=== PATIENT | female | born 1960 | race American Indian/Alaskan Native ===

== ENCOUNTER 2017-12-12 20:16 | Emergency (ER) | payer OTHER ==
[2017-12-12 20:35] VITALS: RESP 20
--- NOTE | 2017-12-12 20:59 | C.PDOC ---
History Of Present Illness 57 y/o female, with PMHx of HTN, presents to ED for high blood pressure and lightheadedness. Pt states her mediations was recently changed by her PMD from Losartan to Amlodipine. Pt states the "new medications are not working." Pt also complains of cough and nasal congestion. Denies fever, or other complaints. Time Seen by Provider: 12/12/17 20:53 Chief Complaint (Nursing): High Blood Pressure History Per: Patient History/Exam Limitations: no limitations Onset/Duration Of Symptoms: Days Current Symptoms Are (Timing): Still Present Associated Symptoms: denies: Chest Pain, Dyspnea, Dizziness, Blurred Vision, Focal Weakness, Headache Severity: None Pain Scale Rating Of: 0 Recent travel outside of the [place]: No Additional History Per: Patient Past Medical History Reviewed: Historical Data, Nursing Documentation, Vital Signs Vital Signs: Last Vital Signs Temp 97.7 F 12/12/17 23:12 Pulse 62 12/12/17 23:12 Resp 20 12/12/17 23:12 BP 144/81 12/12/17 23:12 Pulse Ox 100 12/12/17 23:12 - Medical History PMH: Anxiety, HTN Family History: States: Unknown Family Hx - Social History Hx Tobacco Use: No Hx Alcohol Use: Yes (glass of wine) Hx Substance Use: No - Immunization History Hx Tetanus Toxoid Vaccination: No Hx Influenza Vaccination: No Hx Pneumococcal Vaccination: No Review Of Systems Except As Marked, All Systems Reviewed And Found Negative. Constitutional: Negative for: Fever, Chills ENT: Positive for: Nose Congestion. Negative for: Ear Pain, Nose Discharge, Throat Pain Cardiovascular: Positive for: Light Headedness. Negative for: Chest Pain, Palpitations, Edema Respiratory: Positive for: Cough. Negative for: Shortness of Breath Gastrointestinal: Negative for: Nausea, Vomiting, Abdominal Pain Neurological: Negative for: Headache, Dizziness Physical Exam - Physical Exam Appears: Non-toxic, No Acute Distress, Other (anxious) Skin: Normal Color, Warm, Dry Head: Atraumatic, Normacephalic Eye(s): bilateral: Normal Inspection Oral Mucosa: Moist Chest: Symmetrical Cardiovascular: Rhythm Regular, No Murmur Respiratory: Normal Breath Sounds, No Rales, No Rhonchi, No Wheezing Gastrointestinal/Abdominal: Soft, No Tenderness Extremity: Normal ROM, No Pedal Edema Neurological/Psych: Oriented x3, Normal Speech ED Course And Treatment - Laboratory Results Result Diagrams: 12/12/17 21:24 12/12/17 21:24 O2 Sat by Pulse Oximetry: 99 (RA) Pulse Ox Interpretation: Normal Medical Decision Making Medical Decision Making: Blood work, UA, EKG, CXR, Influenza AB ordered and reviewed. ekg sinus maria 58 incomplete rbbb no previous no e/o of hypertensive emergency. labs unremarkable. cxr shows possibl emild retrocardiac infiltrat vs atelectasis. curb 65 neg. will also dose tamiflu.p tstate she feels well for dc and agrees to dc home. updated dr sims who agrees to see pt with close outpt f/u . updated pt. return precautions advised. pt also reports allergy to pcn (throat clsoing). states she will go to pharmacy and fill Levaquin. Disposition - Disposition Disposition: HOME/ ROUTINE Disposition Time: 12:00 Condition: STABLE Additional Instructions: follo wup with dr peterson, return to er with worsening symptoms or concerns. Prescriptions: levoFLOXacin [Levaquin] 750 mg PO DAILY #10 tab Oseltamivir Phosphate [Tamiflu] 75 mg PO BID #10 capsule Instructions: High Blood Pressure (DC), Pneumonia, Adult (DC) Forms: [employer] (Mauritanian) - Clinical Impression Clinical Impression: Hypertension - Scribe Statement The provider has reviewed the documentation as recorded by the Tobiibvickey Sanchez All medical record entries made by the Scribe were at my direction and personally dictated by me. I have reviewed the chart and agree that the record accurately reflects my personal performance of the history, physical exam, medical decision making, and the department course for this patient. I have also personally directed, reviewed, and agree with the discharge instructions and disposition.
--- NOTE | 2017-12-12 21:22 | RAD ---
HISTORY: cough COMPARISON: None available. TECHNIQUE: Chest PA and lateral FINDINGS: LUNGS: Biapical pleural thickening. Mild retrocardiac atelectasis/infiltrate. Please note that chest x-ray has limited sensitivity for the detection of pulmonary masses. PLEURA: No significant pleural effusion identified. No definite pneumothorax . CARDIOVASCULAR: Heart size appears within normal limits. OSSEOUS STRUCTURES: Degenerative changes. VISUALIZED UPPER ABDOMEN: Unremarkable. OTHER FINDINGS: None. IMPRESSION: Biapical pleural thickening. Mild retrocardiac atelectasis/ infiltrate.
[2017-12-12] MEDS ORDERED: Azithromycin 500 MG in Sodium Chloride 0.9% 250 ML IVPB STA (21:24)
[2017-12-12 21:27] LABS: EOS # 0.1 K/uL (0.0-0.7); EOS % 2.7 % (0.0-4.0); HEMOGLOBIN 13.1 g/dL (11.0-16.0); LYMPH # 1.9 K/uL (1.0-4.3); LYMPH % 42.1 % (20.0-40.0); MEAN CELL VOLUME 94.8 fL (81.0-99.0); MEAN CORPUSCULAR HEMOGLOBIN 32.7 pg (27.0-31.0); MEAN CORPUSCULAR HGB CONC 34.5 g/dL (33.0-37.0); MEAN PLATELET VOLUME 8.4 fL (7.2-11.7); MONO # 0.3 K/uL (0.0-0.8); MONO % 7.7 % (0.0-10.0); NEUT # 2.1 K/uL (1.8-7.0); NEUT % 46.5 % (50.0-75.0); RED CELL DISTRIBUTION WIDTH 13.4 % (11.5-14.5); WHITE BLOOD COUNT 4.6 K/uL (4.8-10.8)
[2017-12-12 21:34] LABS: INR 1.1; PROTHROMBIN TIME 12.4 SECONDS (9.7-12.2)
[2017-12-12 21:44] LABS: SQUAMOUS EPITHIAL 1 /hpf (0-5); URINE BACTERIA RARE (<OCC); URINE BILIRUBIN NEGATIVE (NEGATIVE); URINE BLOOD NEGATIVE (NEGATIVE); URINE CLARITY Clear (Clear); URINE COLOR Colorless (YELLOW); URINE GLUCOSE (UA) NORMAL (Normal); URINE LEUKOCYTE ESTERASE 3+ Leu/uL (Negative); URINE PROTEIN NEGATIVE (NEGATIVE); URINE UROBILINOGEN NORMAL mg/dL (0.2-1.0)
[2017-12-12 21:48] LABS: ALB/GLOB RATIO 1.4 (1.0-2.1); ALBUMIN 4.3 g/dL (3.5-5.0); ALT/SGPT 35 U/L (9-52); AST/SGOT 36 U/L (14-36); BLOOD UREA NITROGEN 17 mg/dL (7-17); CALCIUM 9.6 mg/dl (8.6-10.4); GFR AFRICAN-AMERICAN > 60; GFR NON-AFRICAN AMERICAN > 60
[2017-12-12] MEDS ORDERED: cefTRIAXone IV 1 gm in Dextros 1 GM in Dextrose 5% In Water 50 ML IVPB ONE (22:07)
[2017-12-12] MEDS ORDERED: cefTRIAXone IV 1 gm in Dextros 50 ML IVPB ONE (22:07)
[2017-12-12 23:14] VITALS: BP 144/81; PULSE 62; TEMP 97.7
[2017-12-13 00:07] VITALS: O2SAT 99
[2017-12-13] MEDS ORDERED: cefTRIAXone 2 GM in Sodium Chloride 0.9% 100 ML IVPB SCH (10:00)
--- NOTE | 2017-12-14 20:21 | CARD ---
APPROVED REPORT EKG Measurement Heart [id number] <Conclusion> Sinus bradycardia Possible Left atrial enlargement Incomplete right bundle branch block Borderline ECG
== END 2017-12-12 23:13 | disposition home or self-care (01) ==
LOC: C.ER 20:16
DX: I10 Essential (primary) hypertension (principal)

== ENCOUNTER 2018-01-06 09:46 | Observation (INO) | payer OTHER ==
--- NOTE | 2018-01-06 10:47 | C.PDOC ---
History Of Present Illness 57yo female, with history of hypertension states she has been on Lisinopril however her blood pressure remained elevated and was placed on Amliodopine but it has not been helping with her elevated blood pressure. Patient states she feels unwell, and has been waking up at night due to elevated blood pressure and hot/cold flashes. She also has a secondary complaints of vaginal spotting for the past 4 years. She went to see her PCP Dr. Prescott in his office today however her blood pressure was elevated in his office, after which he told her to come to the ER for further evaluation. Currently in the ER, patient's blood pressure is in 140's systolic. She has no other medical complaints. Time Seen by Provider: 01/06/18 10:16 Chief Complaint (Nursing): Female Genitourinary History Per: Patient History/Exam Limitations: no limitations Onset/Duration Of Symptoms: Persistent Current Symptoms Are (Timing): Still Present Associated Symptoms: Other (hot/cold flashes) Exacerbating Factor(s): Pos: Recent Change In Medication Past Medical History Reviewed: Historical Data, Nursing Documentation, Vital Signs Vital Signs: Last Vital Signs Temp 98 F 01/06/18 13:12 Pulse 76 01/06/18 13:12 Resp 18 01/06/18 13:12 BP 144/82 01/06/18 13:12 Pulse Ox 96 01/06/18 13:12 - Medical History PMH: Anxiety, HTN Surgical History: No Surg Hx Family History: States: Unknown Family Hx - Social History Hx Tobacco Use: No Hx Alcohol Use: Yes (glass of wine) Hx Substance Use: No - Immunization History Hx Tetanus Toxoid Vaccination: No Hx Influenza Vaccination: No Hx Pneumococcal Vaccination: No Review Of Systems Constitutional: Negative for: Fever, Chills Cardiovascular: Positive for: Other (elevated blood pressure) Genitourinary: Positive for: Vaginal Bleeding (vaginal spotting x 4 years) Physical Exam - Physical Exam Appears: Non-toxic, No Acute Distress Skin: Normal Color, Warm, Dry Head: Atraumatic, Normacephalic Eye(s): bilateral: Normal Inspection Nose: Normal Oral Mucosa: Moist Neck: Normal ROM, Supple Chest: Symmetrical Cardiovascular: Rhythm Regular, No Murmur Respiratory: Normal Breath Sounds, No Wheezing Gastrointestinal/Abdominal: Normal Exam, Soft, No Tenderness Extremity: Normal ROM Neurological/Psych: Oriented x3, Normal Motor, Normal Sensation ED Course And Treatment - Laboratory Results Result Diagrams: 01/06/18 11:14 01/06/18 11:14 Lab Interpretation: Normal ECG: Interpreted By Me ECG Rhythm: Sinus Rhythm, Nonspecific Changes ECG Interpretation: No Acute Changes Rate From EC O2 Sat by Pulse Oximetry: 100 (RA) Pulse Ox Interpretation: Normal - Radiology CXR: Interpreted by Me CXR Interpretation: Yes: No Acute Disease Progress Note: Patient has gail experiencing hypertension for months not controlled by meds. Patient evaluated by Dr Prescott in office and B/P elevated ans sent to ED for further evaluation. Treated with xanax Reassessment Condition: Improved - Physician Consult Information Physician Contacted: Champ Prescott Outcome Of Conversation: admit Medical Decision Making Medical Decision Making: Plan: -- CMP -- CBC -- Troponin I -- CXR -- Urinalysis -- Urine culture Time: 1048 CXR FINDINGS: LUNGS: No active pulmonary disease. PLEURA: No significant pleural effusion identified. No pneumothorax apparent. CARDIOVASCULAR: Normal. OSSEOUS STRUCTURES: Unchanged. VISUALIZED UPPER ABDOMEN: Normal. OTHER FINDINGS: None. IMPRESSION: No active disease. Disposition Doctor Will See Patient In The: Hospital - Disposition Disposition: HOSPITALIZED Disposition Time: 13:15 Condition: STABLE Instructions: High Blood Pressure in Adults Forms: [facility] ([place]) - POA Present On Arrival: None - Clinical Impression Clinical Impression: Hypertension, Headache - PA / MIDLEVEL PROVIDER / Resident Statement MD/DO has reviewed & agrees with the documentation as recorded. - Scribe Statement The provider has reviewed the documentation as recorded by the Scribe (Lissett Umanzor) Provider Attestation: All medical record entries made by the Scribe were at my direction and personally dictated by me. I have reviewed the chart and agree that the record accurately reflects my personal performance of the history, physical exam, medical decision making, and the department course for this patient. I have also personally directed, reviewed, and agree with the discharge instructions and disposition. Decision To Admit - Pt Status Changed To: Hospital Disposition Of: Observation - . Bed Request Type: Regular Admitting Physician: Champ Prescott Patient Diagnosis: Hypertension, Headache
--- NOTE | 2018-01-06 10:50 | RAD ---
HISTORY: SOB COMPARISON: Chest radiograph dated 12/12/2017. TECHNIQUE: Chest PA and lateral FINDINGS: LUNGS: No active pulmonary disease. PLEURA: No significant pleural effusion identified. No pneumothorax apparent. CARDIOVASCULAR: Normal. OSSEOUS STRUCTURES: Unchanged. VISUALIZED UPPER ABDOMEN: Normal. OTHER FINDINGS: None. IMPRESSION: No active disease.
[2018-01-06 11:22] LABS: BASO # 0.1 K/uL (0.0-0.2); BASO % 1.5 % (0.0-2.0); EOS # 0.1 K/uL (0.0-0.7); EOS % 2.1 % (0.0-4.0); HEMOGLOBIN 12.9 g/dL (11.0-16.0); LYMPH # 1.4 K/uL (1.0-4.3); LYMPH % 36.8 % (20.0-40.0); MEAN CELL VOLUME 94.7 fL (81.0-99.0); MEAN CORPUSCULAR HEMOGLOBIN 32.4 pg (27.0-31.0); MEAN CORPUSCULAR HGB CONC 34.2 g/dL (33.0-37.0); MEAN PLATELET VOLUME 8.4 fL (7.2-11.7); MONO # 0.3 K/uL (0.0-0.8); MONO % 7.6 % (0.0-10.0); RBC 3.98 Mil/uL (3.80-5.20); RED CELL DISTRIBUTION WIDTH 13.8 % (11.5-14.5); WHITE BLOOD COUNT 3.9 K/uL (4.8-10.8)
[2018-01-06 11:24] LABS: URINE BILIRUBIN NEGATIVE (NEGATIVE); URINE BLOOD NEGATIVE (NEGATIVE); URINE CLARITY Clear (Clear); URINE COLOR Colorless (YELLOW); URINE GLUCOSE (UA) NORMAL (Normal); URINE LEUKOCYTE ESTERASE NEG Leu/uL (Negative); URINE PROTEIN NEGATIVE (NEGATIVE); URINE UROBILINOGEN NORMAL mg/dL (0.2-1.0)
[2018-01-06 11:53] LABS: ALB/GLOB RATIO 1.2 (1.0-2.1); ALBUMIN 4.2 g/dL (3.5-5.0); ALT/SGPT 38 U/L (9-52); AST/SGOT 54 U/L (14-36); BLOOD UREA NITROGEN 9 mg/dL (7-17); CALCIUM 9.8 mg/dl (8.6-10.4); GFR AFRICAN-AMERICAN > 60; GFR NON-AFRICAN AMERICAN > 60
[2018-01-06 19:13] VITALS: RESP 20
--- NOTE | 2018-01-06 22:49 | CP.PCM.HP ---
History of Present Illness - History of Present Illness History of Present Illness: Chief complaint: Uncontrolled hypertension, sudden shaking, palpitation. History present illness: 57-year-old female with history of hypertension,came to the emergency room with symptoms of shaking, palpitation, sweating, headache, nausea aand not feeling well. The patient is currently having frequent episodes of palpitation. She is feeling like near passing out, and also shaking. She gets sudden onset of chest discomfort especially after not eating and time. If she does not eat in time, she started noticing worsening symptoms of heat sensation in the body, numbness in the hands, and also started having some chest tightness associated with the symptoms about palpitation. No chest pain. Denies any headache, but complaining of some dizziness. Patient has symptoms of nausea, but no vomiting. Patient is having these episodes at least a 3 weeks. She also started having the similar symptoms in the past doing the same time while her 3 years ago. She gets the symptoms and at the same time as her blood pressure goes up to 200. Today in my office she was being examined, and she started noticing chest tightness, palpitation, and associated with a very high Hypertension, because of the symptoms of impending stroke like symptoms I advised the patient to go to the emergency room. In the emergency room patient was evaluated, blood pressure improved, after resting she was also feeling slightly better. Past medical history: Hypertension, anxiety, grievance and depression Allergy: No known drug allergy Personal history: Patient is a lifelong nonsmoker, nonalcoholic Patient drinks socially, she drinks coffee daily family history noncontributory Review of systems: Patient is having a headache currently, nausea, no chest pain, denies any chest pain at this time. But complaining of heaviness in the head and neck. She's also feeling somewhat depressed and at times she has a significant feelings of depression with anxiety. Not able to sleep well. Patient's who year ago almost one year anniversary is in 2 weeks. On examination: HEENT PERRLA, neck supple No thyromegaly was noted and no cervical adenopathy noted Chest bilateral good air entry, no wheezing or rales noted CVS regular heart sound, no murmur Abdomen soft and no organomegaly Extremities no pedal edema, no leg swelling, pedal pulses are good. 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 Symptoms are improving with medication, I advised her to continue the antihypertensives. Most likely patient has anxiety episodes. Hypertensive emergency, but controlled well now. Will monitor 24 hours. start the patient on anxiolytics, will follow the patient. Present on Admission - Present on Admission Any Indicators Present on Admission: No History of DVT/PE: No History of Uncontrolled Diabetes: No Urinary Catheter: No Decubitus Ulcer Present: No Past Patient History - Past Medical History & Family History Past Medical History?: No - Past Social History Smoking Status: Never Smoked - CARDIAC Hx Hypertension: Yes - MUSCULOSKELETAL/RHEUMATOLOGICAL Hx Falls: No - PSYCHIATRIC Hx Anxiety: Yes Hx Substance Use: No - SURGICAL HISTORY Hx Surgeries: No - ANESTHESIA Hx Anesthesia: No Meds Allergies/Adverse Reactions: Allergies Allergy/AdvReac Type Severity Reaction Status Date / Time banana Allergy Verified 12/12/17 20:28 lactose Allergy Verified 12/12/17 20:28 Penicillins Allergy Verified 12/12/17 22:13 shrimp Allergy Verified 12/12/17 20:28 Results - Vital Signs Recent Vital Signs: Last Vital Signs Temp 98.1 F 01/06/18 19:11 Pulse 63 01/06/18 19:11 Resp 20 01/06/18 19:11 BP 121/72 01/06/18 19:11 Pulse Ox 98 01/06/18 19:11 - Labs Result Diagrams: 01/06/18 11:14 01/06/18 11:14 Labs: Laboratory Results - last 24 hr 01/06/18 01/06/18 01/06/18 11:14 11:14 11:14 WBC 3.9 L RBC 3.98 Hgb 12.9 Hct 37.7 MCV 94.7 MCH 32.4 H MCHC 34.2 RDW 13.8 Plt Count 219 MPV 8.4 Neut % (Auto) 52.0 Lymph % (Auto) 36.8 [place] % (Auto) 7.6 Eos % (Auto) 2.1 Baso % (Auto) 1.5 Neut # (Auto) 2.0 Lymph # (Auto) 1.4 [place] # (Auto) 0.3 Eos # (Auto) 0.1 Baso # (Auto) 0.1 Sodium 142 Potassium 3.7 Chloride 102 Carbon Dioxide 26 Anion Gap 17 BUN 9 Creatinine 0.8 Est GFR ( Amer) > 60 Est GFR (Non-Af Amer) > 60 Random Glucose 84 Calcium 9.8 Total Bilirubin 0.7 AST 54 H D ALT 38 Alkaline Phosphatase 59 Troponin I < 0.0120 Total Protein 7.7 Albumin 4.2 Globulin 3.5 Albumin/Globulin Ratio 1.2 Urine Color Colorless Urine Clarity Clear Urine pH 7.0 Ur Specific [place] 1.002 L Urine Protein Negative Urine Glucose (UA) Normal Urine Ketones Negative Urine Blood Negative Urine Nitrate Negative Urine Bilirubin Negative Urine Urobilinogen Normal Ur Leukocyte Esterase Neg Urine WBC (Auto) < 1
[2018-01-07 07:40] LABS: HEMOGLOBIN 13.4 g/dL (11.0-16.0); MEAN CELL VOLUME 95.8 fL (81.0-99.0); MEAN CORPUSCULAR HEMOGLOBIN 32.6 pg (27.0-31.0); MEAN PLATELET VOLUME 8.9 fL (7.2-11.7); RBC 4.12 Mil/uL (3.80-5.20); RED CELL DISTRIBUTION WIDTH 13.7 % (11.5-14.5); WHITE BLOOD COUNT 3.3 K/uL (4.8-10.8)
[2018-01-07 08:15] VITALS: BP 126/82; PULSE 78; TEMP 98.1; O2SAT 98
--- NOTE | 2018-01-07 08:51 | CP.PCM.DIS ---
Provider - Provider Date of Admission: 01/06/18 17:00 Attending physician: Champ Prescott MD Time Spent in preparation of Discharge (in minutes): 55 Hospital Course - Lab Results Lab Results: Most Recent Lab Values WBC 3.3 K/uL (4.8-10.8) L 01/07/18 07:26 RBC 4.12 Mil/uL (3.80-5.20) 01/07/18 07:26 Hgb 13.4 g/dL (11.0-16.0) 01/07/18 07:26 Hct 39.5 % (34.0-47.0) 01/07/18 07: MCV 95.8 fL (81.0-99.0) 01/07/18 07: MCH 32.6 pg (27.0-31.0) H 01/07/18 07: MCHC 34.0 g/dL (33.0-37.0) 01/07/18 07: RDW 13.7 % (11.5-14.5) 01/07/18 07:26 Plt Count 233 K/uL (130-400) 01/07/18 07:26 MPV 8.9 fL (7.2-11.7) 01/07/18 07:26 Neut % (Auto) 52.0 % (50.0-75.0) 01/06/18 11:14 Lymph % (Auto) 36.8 % (20.0-40.0) 01/06/18 11:14 [place] % (Auto) 7.6 % (0.0-10.0) 01/06/18 11:14 Eos % (Auto) 2.1 % (0.0-4.0) 01/06/18 11:14 Baso % (Auto) 1.5 % (0.0-2.0) 01/06/18 11:14 Neut # (Auto) 2.0 K/uL (1.8-7.0) 01/06/18 11:14 Lymph # (Auto) 1.4 K/uL (1.0-4.3) 01/06/18 11:14 [place] # (Auto) 0.3 K/uL (0.0-0.8) 01/06/18 11:14 Eos # (Auto) 0.1 K/uL (0.0-0.7) 01/06/18 11:14 Baso # (Auto) 0.1 K/uL (0.0-0.2) 01/06/18 11:14 Sodium 142 mmol/L (132-148) 01/06/18 11:14 Potassium 3.7 mmol/L (3.6-5.2) 01/06/18 11:14 Chloride 102 mmol/L (98-107) 01/06/18 11:14 Carbon Dioxide 26 mmol/L (22-30) 01/06/18 11:14 Anion Gap 17 (10-20) 01/06/18 11:14 BUN 9 mg/dL (7-17) 01/06/18 11:14 Creatinine 0.8 mg/dL (0.7-1.2) 01/06/18 11:14 Est GFR ( Amer) > 60 01/06/18 11:14 Est GFR (Non-Af Amer) > 60 01/06/18 11:14 Random Glucose 84 mg/dL (65-105) 01/06/18 11:14 Calcium 9.8 mg/dl (8.6-10.4) 01/06/18 11:14 Total Bilirubin 0.7 mg/dL (0.2-1.3) 01/06/18 11:14 AST 54 U/L (14-36) H D 01/06/18 11:14 ALT 38 U/L (9-52) 01/06/18 11:14 Alkaline Phosphatase 59 U/L (38-126) 01/06/18 11:14 Troponin I < 0.0120 ng/mL (0.00-0.120) 01/06/18 11:14 Total Protein 7.7 g/dL (6.3-8.3) 01/06/18 11:14 Albumin 4.2 g/dL (3.5-5.0) 01/06/18 11:14 Globulin 3.5 gm/dL (2.2-3.9) 01/06/18 11:14 Albumin/Globulin Ratio 1.2 (1.0-2.1) 01/06/18 11:14 Urine Color Colorless (YELLOW) 01/06/18 11:14 Urine Clarity Clear (Clear) 01/06/18 11:14 Urine pH 7.0 (5.0-8.0) 01/06/18 11:14 Ur Specific [place] 1.002 (1.003-1.030) L 01/06/18 11:14 Urine Protein Negative mg/dL (NEGATIVE) 01/06/18 11:14 Urine Glucose (UA) Normal mg/dL (Normal) 01/06/18 11:14 Urine Ketones Negative mg/dL (NEGATIVE) 01/06/18 11:14 Urine Blood Negative (NEGATIVE) 01/06/18 11:14 Urine Nitrate Negative (NEGATIVE) 01/06/18 11:14 Urine Bilirubin Negative (NEGATIVE) 01/06/18 11:14 Urine Urobilinogen Normal mg/dL (0.2-1.0) 01/06/18 11:14 Ur Leukocyte Esterase Neg [place]/uL (Negative) 01/06/18 11:14 Urine WBC (Auto) < 1 /hpf (0-5) 01/06/18 11:14 - Hospital Course Hospital Course: Upon Admission: Chief complaint: Uncontrolled hypertension, sudden shaking, palpitation. History present illness: 57-year-old female with history of hypertension,came to the emergency room with symptoms of shaking, palpitation, sweating, headache, nausea aand not feeling well. The patient is currently having frequent episodes of palpitation. She is feeling like near passing out, and also shaking. She gets sudden onset of chest discomfort especially after not eating and time. If she does not eat in time, she started noticing worsening symptoms of heat sensation in the body, numbness in the hands, and also started having some chest tightness associated with the symptoms about palpitation. No chest pain. Denies any headache, but complaining of some dizziness. Patient has symptoms of nausea, but no vomiting. Patient is having these episodes at least a 3 weeks. She also started having the similar symptoms in the past doing the same time while her 3 years ago. She gets the symptoms and at the same time as her blood pressure goes up to 200. Today in my office she was being examined, and she started noticing chest tightness, palpitation, and associated with a very high Hypertension, because of the symptoms of impending stroke like symptoms I advised the patient to go to the emergency room. In the emergency room patient was evaluated, blood pressure improved, after resting she was also feeling slightly better. Past medical history: Hypertension, anxiety, grievance and depression Allergy: No known drug allergy Personal history: Patient is a lifelong nonsmoker, nonalcoholic Patient drinks socially, she drinks coffee daily family history noncontributory Review of systems: Patient is having a headache currently, nausea, no chest pain, denies any chest pain at this time. But complaining of heaviness in the head and neck. She's also feeling somewhat depressed and at times she has a significant feelings of depression with anxiety. Not able to sleep well. Patient's who year ago almost one year anniversary is in 2 weeks. Throughout Hospital Course: Patient was admitted for hypertension associated with n/v and headache. Patient was observed overnight. EKG - WNL. Patient reports she feels well this morning. Patient will be discharged with Cozaar and Xanax. She is to follow up with Dr. Prescott in 1-2 weeks. Discharge Exam - Head Exam Head Exam: ATRAUMATIC, NORMAL INSPECTION, NORMOCEPHALIC - Eye Exam Eye Exam: EOMI, Normal appearance, PERRL Pupil Exam: NORMAL ACCOMODATION - Neck Exam Neck exam: Normal Inspection - Respiratory Exam Respiratory Exam: NORMAL BREATHING PATTERN - Cardiovascular Exam Cardiovascular Exam: REGULAR RHYTHM - GI/Abdominal Exam GI & Abdominal Exam: Normal Bowel Sounds, Soft. absent: Distended, Tenderness - Rectal Exam Rectal Exam: Deferred - Extremities Exam Extremities exam: normal inspection, pedal pulses present - Neurological Exam Neurological exam: Alert, CN II-XII Intact, Oriented x3 - Psychiatric Exam Psychiatric exam: Normal Affect, Normal Mood - Skin Skin Exam: Dry, Intact, Normal Color, Warm Discharge Plan - Discharge Medications Prescriptions: Losartan [Cozaar] 25 mg PO DAILY #30 tab - Follow Up Plan Condition: STABLE Disposition: HOME/ ROUTINE Instructions: High Blood Pressure in Adults, Hypertension (DC), Hypertension ( GEN) Additional Instructions: You are to continue taking Cozaar 25mg by mouth daily. You can also take Xanax 0.25mg by mouth in the am and at night as needed - Dr. Prescott will send this medication to your pharmacy. Please see Dr. Prescott in 1-2 weeks.
[2018-01-07 09:47] LABS: CK-MB 0.41 ng/mL (0.0-3.38)
[2018-01-07 09:52] LABS: ALB/GLOB RATIO 1.2 (1.0-2.1); ALBUMIN 4.3 g/dL (3.5-5.0); AST/SGOT 57 U/L (14-36); BLOOD UREA NITROGEN 12 mg/dL (7-17); CALCIUM 10.1 mg/dl (8.6-10.4); GFR AFRICAN-AMERICAN > 60; GFR NON-AFRICAN AMERICAN > 60
[2018-01-07] MEDS ORDERED: Pneumococcal 23-Valent Vaccine IM ONE (10:00)
[2018-01-07 10:22] LABS: ALT/SGPT 30 U/L (9-52)
--- NOTE | 2018-01-08 08:01 | CARD ---
APPROVED REPORT EKG Measurement Heart [id number] <Conclusion> Normal sinus rhythm Nonspecific T wave abnormality Abnormal ECG
== END 2018-01-07 12:50 | disposition home or self-care (01) ==
LOC: C.ER 09:46 → C.3T 17:00
PROVIDERS: ADMIT Internal Medicine; ATTEND Internal Medicine
DX: I16.1 Hypertensive emergency (principal); I10 Essential (primary) hypertension; F41.9 Anxiety disorder, unspecified
CPT/HCPCS: 36415; 71046; 80053; 81001; 82948; 84484; 85025; 85027; 87086; 99284; G0378

== ENCOUNTER 2018-05-04 14:54 | Emergency (ER) | payer OTHER ==
--- NOTE | 2018-05-04 16:13 | C.PDOC ---
History Of Present Illness 57 y/o female sent to the ED by PMD for evaluation of anxiety and elevated blood pressure. Patient states she received news about a in the family today, and started to feel stressed out. She checked her blood pressure at home and found it to be 180/100, so she took 2 doses of her morning medication. Otherwise patient offers no physical complaints. She denies any chest pain, SOB , headache, dizziness, double or blurry vision. On examination patient complains she is hungry, requesting food. Time Seen by Provider: 05/04/18 15:23 Chief Complaint (Nursing): Anxiety History Per: Patient History/Exam Limitations: no limitations Onset/Duration Of Symptoms: Hrs Current Symptoms Are (Timing): Better Suicide/Self Injury Attempted (Context): None Modifying Factor(s): None Past Medical History Reviewed: Historical Data, Nursing Documentation, Vital Signs Vital Signs: Last Vital Signs Temp 98.7 F 05/04/18 16:53 Pulse 64 05/04/18 16:53 Resp 20 05/04/18 16:53 BP 148/90 05/04/18 16:53 Pulse Ox 100 05/04/18 16:53 - Medical History PMH: Anxiety, HTN Surgical History: No Surg Hx Family History: States: Unknown Family Hx - Social History Hx Tobacco Use: No Hx Alcohol Use: Yes (glass of wine) Hx Substance Use: No - Immunization History Hx Tetanus Toxoid Vaccination: No Hx Influenza Vaccination: No Hx Pneumococcal Vaccination: No Review Of Systems Except As Marked, All Systems Reviewed And Found Negative. Eyes: Negative for: Vision Change Cardiovascular: Negative for: Chest Pain Respiratory: Negative for: Shortness of Breath Gastrointestinal: Negative for: Nausea, Vomiting Neurological: Negative for: Weakness, Change in Speech, Confusion, Headache, Dizziness Psych: Positive for: Anxiety, Other (Emotional stress) Physical Exam - Physical Exam Appears: Well, Non-toxic, No Acute Distress Skin: Warm, Dry, No Rash Head: Atraumatic, Normacephalic Eye(s): bilateral: Normal Inspection Oral Mucosa: Moist Neck: Normal ROM, Supple Chest: Symmetrical Cardiovascular: Rhythm Regular, No Murmur Respiratory: Normal Breath Sounds, No Rales, No Rhonchi, No Wheezing Gastrointestinal/Abdominal: Soft, No Tenderness Extremity: Bilateral: Atraumatic, Normal Color And Temperature, Normal ROM Neurological/Psych: Oriented x3, Normal Speech, Normal Motor Gait: Steady ED Course And Treatment O2 Sat by Pulse Oximetry: 99 (RA) Pulse Ox Interpretation: Normal Disposition - Disposition Referrals: Champ Prescott MD [Staff Provider] - Disposition: HOME/ ROUTINE Disposition Time: 16:27 Condition: GOOD Additional Instructions: Follow up with the medical doctor within 1-2 days, Return if worsened. Instructions: Anxiety, Adult (DC) Forms: [employer] (Citizen Of [place]) - Clinical Impression Clinical Impression: Anxiety, Grief - PA / BILINGUAL SALES REPRESENTATIVE / Resident Statement MD/DO has reviewed & agrees with the documentation as recorded. - Scribe Statement The provider has reviewed the documentation as recorded by the Scribe (Tere Loyd) All medical record entries made by the Scribe were at my direction and personally dictated by me. I have reviewed the chart and agree that the record accurately reflects my personal performance of the history, physical exam, medical decision making, and the department course for this patient. I have also personally directed, reviewed, and agree with the discharge instructions and disposition.
[2018-05-04 16:54] VITALS: BP 148/90; PULSE 64; RESP 20; TEMP 98.7
[2018-05-04 17:44] VITALS: O2SAT 99
== END 2018-05-04 16:54 | disposition home or self-care (01) ==
LOC: C.ER 14:54
DX: F41.9 Anxiety disorder, unspecified (principal); F43.21 Adjustment disorder with depressed mood

== ENCOUNTER 2018-11-16 19:33 | Emergency (ER) | payer OTHER ==
[2018-11-16 19:38] VITALS: RESP 18; TEMP 97.9; O2SAT 100
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
[2018-11-16 20:20] LABS: VENOUS BLOOD GAS BASE EXCESS 1.1 mmol/L (0.0-2.0); VENOUS BLOOD GAS PCO2 55 mmHg (40-60); VENOUS BLOOD GAS PO2 24 mm/Hg (30-55); VENOUS BLOOD PH 7.32 (7.32-7.43)
[2018-11-16 20:22] LABS: BASO # 0.1 K/uL (0.0-0.2); BASO % 1.4 % (0.0-2.0); EOS # 0.1 K/uL (0.0-0.7); EOS % 1.9 % (0.0-4.0); HEMOGLOBIN 13.3 g/dL (11.0-16.0); LYMPH # 1.9 K/uL (1.0-4.3); LYMPH % 44.3 % (20.0-40.0); MEAN CELL VOLUME 96.3 fL (81.0-99.0); MEAN CORPUSCULAR HGB CONC 33.2 g/dL (33.0-37.0); MONO # 0.3 K/uL (0.0-0.8); MONO % 7.7 % (0.0-10.0); NEUT # 1.9 K/uL (1.8-7.0); NEUT % 44.7 % (50.0-75.0); NRBC % 0.1 % (0.0-2.0); RBC 4.15 Mil/uL (3.80-5.20); RED CELL DISTRIBUTION WIDTH 13.2 % (11.5-14.5); WHITE BLOOD COUNT 4.3 K/uL (4.8-10.8)
[2018-11-16 20:23] LABS: ARTERIAL BLOOD GAS HEMOGLOBIN 12.7 g/dL (11.7-17.4); ARTERIAL BLOOD GAS O2 SAT 46.2 % (95-98)
[2018-11-16 20:35] LABS: ALB/GLOB RATIO 1.6 (1.0-2.1); ALBUMIN 4.6 g/dL (3.5-5.0); ALT/SGPT 27 U/L (9-52); AST/SGOT 41 U/L (14-36); BLOOD UREA NITROGEN 16 mg/dL (7-17); CALCIUM 9.6 mg/dl (8.6-10.4); GFR NON-AFRICAN AMERICAN > 60
[2018-11-16 20:59] VITALS: BP 169/99; PULSE 70
--- NOTE | 2018-11-18 22:00 | CARD ---
APPROVED REPORT Date of service: 11/16/2018 EKG Measurement Heart [id number] <Conclusion> Normal sinus rhythm Incomplete right bundle branch block Borderline ECG
== END 2018-11-16 21:05 | disposition home or self-care (01) ==
LOC: C.ER 19:33
DX: Z77.098 Contact with and (suspected) exposure to other hazardous, chiefly nonmedicinal, chemicals (principal); R42 Dizziness and giddiness; I10 Essential (primary) hypertension